=== PATIENT | female | born 2000 | race American Indian/Alaskan Native ===

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

== ENCOUNTER 2020-12-19 20:55 | Emergency (ER) | payer OTHER ==
[~2020-12-19] VITALS: Ht 152.4 cm; Wt 44.0 kg
[~2020-12-19 20:55] MED LIST changes: +CEPHALEXIN500 MG PO; +KETO10TA2 PO
[2020-12-19] MEDS ORDERED: TUSNEL LIQUID178 ML PO (23:08)
[2020-12-19] MEDS ORDERED: ZYRTEC10 MG PO (23:08)
== END 2020-12-20 03:07 | disposition home or self-care (01) ==
LOC: ER 20:55
DX: J00 Acute nasopharyngitis [common cold] (principal); Z03.818 Encounter for observation for suspected exposure to other biological agents ruled out